=== PATIENT | female | born 1985 | race American Indian/Alaskan Native ===

== ENCOUNTER 2018-02-26 14:45 | Outpatient (CLI) | payer BC, MEDICAID ==
[2018-02-26 15:26] LABS: Bilirubin,Urine NEG (Negative); Blood,Urine NEG (Negative); Color,Urine Straw (Yellow); Protein,Urine <15 mg/dL mg/dL (Negative)
[2018-02-26] MEDS ORDERED: LACTATED RINGERS 500 ML IV ONE ×2 (15:47→17:15)
[2018-02-26] MEDS ORDERED: LACTATED RINGERS 1,000 ML IV SCH (17:00)
[2018-02-26] MEDS: BRETHINE SUB-Q SCH ×3 (17:42→18:36)
[2018-02-26] MEDS ORDERED: ROCEPHIN/NS 1 GM/50 ML 1 GM/50 ML BAG IV SCH (17:45)
[2018-02-26 19:48] VITALS: BP 117/59
== END 2018-02-26 21:10 | disposition home or self-care (01) ==
LOC: TRG 14:45
PROVIDERS: ATTEND Obstetrics & Gynecology
DX: O47.03 False labor before 37 completed weeks of gestation, third trimester (principal); Z3A.29 29 weeks gestation of pregnancy
CPT/HCPCS: 36415; 59025; 81001; 82731; 96360; 96372; J0696; J3105; J7120

== ENCOUNTER 2018-06-18 07:35 | Day surgery (SDC) | payer MEDICAID ==
[2018-06-17 11:04] LABS: Basophils % (Auto) 0.6 % (0.0-1.8); Eosinophils % (Auto) 0.7 % (0.0-4.3); Hematocrit 37.6 % (30.3-42.9); Hemoglobin 12.6 gm/dl (10.1-14.3); Lymphocytes # (Auto) 1.4 K/mm3 (1.2-5.4); Lymphocytes % (Auto) 19.6 % (13.4-35.0); Mean Corpuscular HGB Conc 34 % (30-34); Mean Corpuscular Volume 97 fl (79-97); Monocytes # (Auto) 0.5 K/mm3 (0.0-0.8); Monocytes % (Auto) 7.4 % (0.0-7.3); Platelet Count 366 K/mm3 (140-440); Red Blood Count 3.87 M/mm3 (3.65-5.03)
[2018-06-17 11:25] LABS: Alanine Aminotransferase 17 units/L (7-56); Albumin 3.8 g/dL (3.9-5); BUN/Creatinine Ratio 12; Blood Urea Nitrogen 7 mg/dL (7-17); Calcium 8.8 mg/dL (8.4-10.2); Hemolysis Index 35
--- NOTE | 2018-06-17 14:13 | Short Stay Summary ---
Short Stay Documentation Date of service: 06/18/18 Narrative H&P: 32y/o with undesired fertility. The patient elects for permanent sterilization. Patient has been reassessed/reevaluated/re-examined. H&P has been reviewed. No interval changes. - History Principal diagnosis: Unwanted fertility Past Medical History: seizures, other (Lupus) Past Surgical History: Other (renal biopsy) Social history: single - Allergies and Medications Current Medications: Allergies No Known Allergies Allergy (Verified 06/13/18 09:14) Home Medications Medication Instructions Recorded Confirmed Last Taken Type Keppra 500 mg PO BID 03/27/18 06/13/18 04/01/18 07:30 History Plaquenil 300 mg PO DAILY 03/27/18 06/13/18 04/01/18 07:30 History Prednisone 5 mg PO DAILY 03/27/18 06/13/18 04/01/18 07:30 History azaTHIOprine [Imuran] 50 mg PO BID 03/27/18 06/13/18 04/01/18 07:30 History Aspirin BABY CHEW TAB 81 mg PO DAILY 03/28/18 06/13/18 04/01/18 07:30 History Spironolactone 25 mg PO DAILY 06/13/18 06/13/18 Unknown History - Physical exam General appearance: no acute distress Integumentary: no rash HEENT: Atraumatic Lungs: Clear to auscultation Breasts: deferred Heart: Regular rate Gastrointestinal: normal Female Genitourinary: deferred Rectal Exam: deferred - Brief post op/procedure progress note Date of procedure: 06/18/18 Pre-op diagnosis: undesired fertility Post-op diagnosis: other (left hemorrhagic cyst) Procedure: Laparoscopic bilateral tubal ligation Left ovarian cystotomy Anesthesia: CORYA Surgeon: DILLON WATTERS Estimated blood loss: minimal Pathology: none Condition: stable - Hospital course Hospital course: The patient was admitted the day of surgery and underwent a laparoscopic bilateral tubal ligation. Please see operative note for details of surgery. Postoperative course was uneventful. - Disposition Condition at discharge: Good Disposition: DC-01 TO HOME OR SELFCARE Short Stay Discharge Plan Activity: other (pelvic rest for 1 week) Diet: regular Additional Instructions: Follow-up is not required Follow-up as needed Prescriptions: Ibuprofen [Motrin] 800 mg PO Q8HR PRN #60 tablet PRN Reason: Pain, Mild (1-3) oxyCODONE /ACETAMINOPHEN [Percocet 5/325] 1 tab PO Q6HR PRN #20 tablet PRN Reason: Pain
[2018-06-18] MEDS ORDERED: NACL BACTERIOSTATIC INFILTRATI ONE (08:51)
[2018-06-18] MEDS ORDERED: LACTATED RINGERS 1,000 ML IV SCH (09:00)
[2018-06-18] MEDS ORDERED: VERSED ONE (09:14)
[2018-06-18] MEDS ORDERED: MARCAINE 0.5% INFILTRATI ONE ×3 (09:57→11:02)
[2018-06-18] MEDS ORDERED: ZOFRAN ONE (09:58)
[2018-06-18] MEDS ORDERED: DECADRON ONE (09:58)
[2018-06-18] MEDS ORDERED: DIPRIVAN 10 MG/ML IV ONE (09:58)
[2018-06-18] MEDS ORDERED: SUBLIMAZE ONE (09:58)
[2018-06-18] MEDS ORDERED: XYLOCAINE MPF 2% ONE (10:03)
[2018-06-18] MEDS ORDERED: NACL 0.9% IR ONE (11:02)
--- NOTE | 2018-06-18 11:16 | Operative Report ---
Operative Report Operative Report: Date of surgery: 06/18/2018 Preoperative diagnosis: Unwanted fertility Postoperative diagnosis: Same as above; left hemorrhagic ovarian cyst Procedure: Laparoscopic bilateral tubal ligation with Filshie clips; left hemorrhagic cyst aspiration Surgeon: Arianna Cavanaugh M.D. Anesthesia: General endotracheal anesthesia Estimated blood loss: Minimal Findings: Left hemorrhagic cyst Indication: 32-year-old 013 with a history of undesired fertility. The patient elected for permanent sterilization. Procedure: The patient was taken to the operating room and given general endotracheal anesthesia without complication. The patient is prepped and draped in a normal sterile fashion. A bivalve speculum was placed in the patient's vagina and a single-tooth tenaculum was placed on the anterior lip of the cervix .A uterine acorn manipulato rwas placed, and the bivalve speculum was then removed. Attention was then turned to the patient's abdomen where a 5 mm infraumbilical skin incision was then made. A Veress needle was placed and peritoneal entry was verified water-filled syringe. Insufflation of the peritoneal cavity was performed with CO2 gas. A 5 mm trocar was placed and the laparoscope was then inserted. The patient was then placed in Trendelenburg. A 7 mm suprapubic skin incision was then made. Under direct visualization a 7 mm trocar was then placed. General survey of the patient's abdomen revealed left hemorrhagic cyst. A needle and syringe were placed through the trocar. The hemorrhagic cyst was aspirated with findings of blood-tinged fluid. The fallopian tube was then followed out to the fimbriated end. A Filshie clip was placed, on the ampullary portion of the tube. This was performed on the contralateral side as well. The 7 mm trocar was then removed. The pneumoperitoneum was then released. The 5 mm trocar laparoscope was then removed. The skin incisions were then closed with 4-0 Monocryl. The incisions were injected with quarter percent Marcaine. Dressings were applied to the incision. The vaginal instruments were then removed atraumatically. Then successfully extubated and taken to the recovery room. All sponge laps and needle counts were correct 2.
[2018-06-18] MEDS ORDERED: TORADOL ONE (11:20)
[2018-06-18] MEDS ORDERED: DILAUDID IV PRN (11:36)
[2018-06-18] MEDS ORDERED: DEMEROL ONE (11:48)
[2018-06-18] MEDS ORDERED: DEMEROL IV PRN (11:50)
[2018-06-18] MEDS ORDERED: PERCOCET 5/325 PO ONE (12:19)
[2018-06-18 12:41] VITALS: BP 141/80
--- NOTE | 2018-06-18 17:29 | Anesthesia Consultation ---
Anesthesia Consult and Med Hx Date of service: 06/18/18 - Airway Anesthetic Teeth Evaluation: Poor ROM Head & Neck: Adequate Mental/Hyoid Distance: Adequate Mallampati Class: Class II Intubation Access Assessment: Probably Good - Pulmonary Exam CTA: Yes - Cardiac Exam Cardiac Exam: RRR - Pre-Operative Health Status ASA Pre-Surgery Classification: ASA2 Proposed Anesthetic Plan: General - Pulmonary Hx Asthma: No COPD: No Hx Pneumonia: No - Cardiovascular System Hx Hypertension: Yes (CHTN-no meds) - Central Nervous System Hx Seizures: Yes (x1 only 2016, R/T Lupus) Hx Psychiatric Problems: No - Endocrine Hx Renal Disease: No Hx End Stage Renal Disease: No Hx Hypothyroidism: No Hx Hyperthyroidism: No - Hematic Hx Anemia: Yes Hx Sickle Cell Disease: No - Other Systems Hx Alcohol Use: Yes (Occas) Hx Cancer: No
--- NOTE | 2018-06-18 17:29 | Anesthesia Day of Surgery ---
Anesthesia Day of Surgery - Day of Surgery Patient Examined: Yes Patient H&P Reviewed: Yes Patient is NPO: Yes
--- NOTE | 2018-06-18 17:30 | Post Anesthesia Evaluation ---
- Post Anesthesia Evaluation Patient Participated: Yes Airway Patent: Yes Stable Respiratory Function: Yes Nausea/Vomiting: No Temp > 96.8F: Yes Pain Manageable: Yes Adequeate Hydration: Yes Anesthesia Complications: No
== END 2018-06-18 07:36 | disposition home or self-care (01) ==
LOC: OR 07:35
PROVIDERS: ATTEND Obstetrics & Gynecology
DX: Z30.2 Encounter for sterilization (principal); G43.909 Migraine, unspecified, not intractable, without status migrainosus; Z83.3 Family history of diabetes mellitus; Z79.899 Other long term (current) drug therapy; Z79.82 Long term (current) use of aspirin; Z72.89 Other problems related to lifestyle; Z98.890 Other specified postprocedural states; Z82.49 Family history of ischemic heart disease and other diseases of the circulatory system; Z86.2 Personal history of diseases of the blood and blood-forming organs and certain disorders involving the immune mechanism
CPT/HCPCS: 36415; 58671; 80053; 84703; 85025; J1100; J1170; J1885; J2175; J2250; J2405; J2704; J3010; J7120

== ENCOUNTER 2021-10-14 18:51 | Inpatient (IN) | payer MEDICARE ==
[2021-10-14] MEDS ORDERED: BICITRA ORAL LIQD 30ML PO ONE (19:29)
[2021-10-14] MEDS ORDERED: FAMOTIDINE 20 MG/2 ML INJ IV ONE (19:29)
[2021-10-14] MEDS ORDERED: METOCLOPRAMIDE 10 MG/2 ML INJ IV ONE (19:29)
[2021-10-14] MEDS ORDERED: LACTATED RINGERS 1,000 ML ONE ×2 (19:29→20:51)
[2021-10-14] MEDS ORDERED: miSOPROStol 200 MCG TAB PR PRN (19:30)
[2021-10-14] MEDS ORDERED: PROMETHAZINE 25 MG TAB PO PRN (19:30)
[2021-10-14] MEDS ORDERED: LACTATED RINGERS 1,000 ML IV SCH ×2 (19:30)
[2021-10-14] MEDS ORDERED: ePHEDrine SULFATE 50 MG/1 ML INJ IV PRN (19:30)
[2021-10-14] MEDS ORDERED: ACETAMINOPHEN 325 MG TAB PO PRN (19:30)
[2021-10-14] MEDS ORDERED: NalbUPHINE 10 MG/1 ML INJ IV PRN ×2 (19:30→20:00)
[2021-10-14] MEDS ORDERED: LIDOCAINE (2%) 20 MG/1 ML VIAL 20 ML MDV INFILTRATI ONE (19:30)
[2021-10-14] MEDS ORDERED: METHYLERGONOVINE MALEATE 0.2 MG/ML VIAL IM PRN (19:30)
[2021-10-14] MEDS ORDERED: BUTORPHANOL 2 MG/1 ML INJ IV PRN (19:30)
[2021-10-14] MEDS ORDERED: TERBUTALINE 1 MG/1 ML INJ SUB-Q PRN (19:30)
[2021-10-14] MEDS ORDERED: MINERAL OIL 30 ML ORAL LIQD PO PRN (19:30)
[2021-10-14] MEDS ORDERED: NALOXONE 0.4 MG/1 ML INJ IV PRN ×2 (19:30→20:00)
[2021-10-14] MEDS ORDERED: LOPERAMIDE 2 MG CAP PO PRN (19:30)
[2021-10-14] MEDS ORDERED: CARBOPROST TROMETHAMINE 250 MCG/1 ML INJ IM PRN (19:30)
[2021-10-14] MEDS ORDERED: OXYTOCIN 10 UNIT/1 ML INJ IM PRN (19:30)
[2021-10-14] MEDS ORDERED: ONDANSETRON 4 MG/2 ML INJ IV PRN (19:30)
[2021-10-14] MEDS ORDERED: PROMETHAZINE 25 MG RECT SUPP PR PRN (20:00)
[2021-10-14] MEDS ORDERED: HYDROmorphone 1 MG/1 ML INJ IV PRN (20:00)
[2021-10-14] MEDS ORDERED: OXYTOCIN DRIP 30 UNITS/500 ML BAG IV SCH (20:00)
[2021-10-14] MEDS ORDERED: ceFAZolin/Water 2 GM/20 ML 2 GM/20 ML SYRINGE IV NR (20:00)
[2021-10-14] MEDS ORDERED: diphenhydrAMINE 50 MG/ML VIAL IV PRN (20:00)
--- NOTE | 2021-10-14 20:12 | Anesthesia Consultation ---
Anesthesia Consult and Med Hx Date of service: 10/14/21 - Airway Anesthetic Teeth Evaluation: Good ROM Head & Neck: Adequate Mental/Hyoid Distance: Adequate Mallampati Class: Class II Intubation Access Assessment: Probably Good - Pulmonary Exam CTA: Yes - Cardiac Exam Cardiac Exam: RRR - Pre-Operative Health Status ASA Pre-Surgery Classification: ASA2 Proposed Anesthetic Plan: General Nerve Block: TAP - Pulmonary Hx Smoking: No Hx Asthma: No COPD: No Hx Pneumonia: No Hx Sleep Apnea: No - Cardiovascular System Hx Hypertension: Yes (CHTN-no meds) Hx Heart Attack/AMI: No Hx Angina: No - Central Nervous System Hx Seizures: Yes (x1 only 2016, R/T Lupus) Hx Psychiatric Problems: No - Gastrointestinal Hx Gastroesophageal Reflux Disease: No - Endocrine Hx Renal Disease: No Hx End Stage Renal Disease: No Hx Liver Disease: No Hx Insulin Dependent Diabetes: No Hx Non-Insulin Dependent Diabetes: No Hx Hypothyroidism: No Hx Hyperthyroidism: No - Hematic Hx Anemia: Yes Hx Sickle Cell Disease: No - Other Systems Hx Alcohol Use: Yes (Occas) Hx Cancer: No - Additional Comments Anesthesia Medical History Comments: Lupus
--- NOTE | 2021-10-14 20:12 | Anesthesia Day of Surgery ---
Anesthesia Day of Surgery - Day of Surgery Patient Examined: Yes Patient H&P Reviewed: Yes Patient is NPO: No (ate @1700) Beta Blockers: No Cardiac Clearance: No Pulmonary Clearance: No Justo's Test: N/A
[2021-10-14] MEDS ORDERED: LIDOCAINE MPF (2%) 20 MG/1 ML VIAL 5 ML ONE (20:13)
[2021-10-14] MEDS ORDERED: propofoL 200 MG/20 ML VIAL IV ONE (20:14)
[2021-10-14] MEDS ORDERED: SUCCINYLCHOLINE CHLORIDE 200 MG/10 ML INJ MDV ONE (20:14)
--- NOTE | 2021-10-14 20:17 | Ultrasound Report ---
Limited OB ultrasound INDICATION: Position FINDINGS: Single live intrauterine in breech position. heart rate 1 41 bpm. IMPRESSION: Single live intrauterine in breech position Signer Name: Nico Domingo MD Signed: 10/14/2021 8:12 PM Workstation Name: [id number]
[2021-10-14] MEDS ORDERED: dexAMETHasone 20 MG/5 ML VIAL ONE (20:18)
[2021-10-14] MEDS ORDERED: ONDANSETRON 4 MG/2 ML INJ ONE (20:18)
[2021-10-14] MEDS ORDERED: KETOROLAC 30 MG/1 ML INJ ONE (20:18)
--- NOTE | 2021-10-14 20:21 | History and Physical Report ---
History of Present Illness Date of examination: 10/14/21 Date of admission: 10/14/21 19:31 Chief complaint: contractions, my mucus plug came out History of present illness: Pt is a 36 year old NALLELY 11/25/21 at 34w0d who presents with regular painful contraction since 3 am 10/14/21 and mucus mixed with blood when she wipes. Upon evaluation in triage, the patient was noted to be 5-6 cm dilated with a bulging bag in breech presentation. She has had care at [facility] since 10 wks complicated by advanced maternal age, chronic hypertension on no medication, lupus, seizure disorder, anemia, h/o tubal ligation in 2019, HSIL pap smear, genital herpes without lesion or prodrome, polyhydramnios, and GBS positive status. Pt reports that she ate 3 hours prior to presentation. Past History Past Medical History: hypertension, seizure, hematologic disorders (anemia ), other (lupus ) Past Surgical History: [employer]/uterine surgery (tubal ligation in 2019, colposcopy ), other (renal biopsy ) [employer] O[employer]ATOR History: abnormal PAP smear (HSIL pap smear ) Family/Genetic History: diabetes, hypertension Social history: no significant social history - Obstetrical History Expected Date of Delivery: 11/25/21 Actual Gestation: 34 Week(s) 1 Day(s) : 5 Para: 3 Hx # Term Pregnancies: 3 Number of Pregnancies: 0 Spontaneous Abortions: 1 Induced : 0 Number of Living Children: 3 Medications and Allergies Allergies Allergy/AdvReac Type Severity Reaction Status Date / Time No Known Allergies Allergy Verified 06/13/18 09:14 Home Medications Medication Instructions Recorded Confirmed Last Taken Type Keppra 500 mg PO BID 03/27/18 06/18/18 06/18/18 07:30 History Plaquenil 300 mg PO DAILY 03/27/18 06/13/18 06/17/18 History Prednisone 5 mg PO DAILY 03/27/18 06/13/18 06/17/18 History azaTHIOprine [Imuran] 50 mg PO BID 03/27/18 06/13/18 06/17/18 History Aspirin BABY CHEW TAB 81 mg PO DAILY 03/28/18 06/18/18 06/12/18 History Spironolactone 25 mg PO DAILY 06/13/18 06/13/18 06/17/18 History Ibuprofen [Motrin] 800 mg PO Q8HR PRN #60 tablet 06/18/18 Unknown Rx oxyCODONE /ACETAMINOPHEN [Percocet 1 tab PO Q6HR PRN #20 tablet 06/18/18 Unknown Rx 5/325] Active Meds: Active Medications Acetaminophen (Acetaminophen 325 Mg Tab) 650 mg PO Q4H PRN PRN Reason: Pain, Mild (1-3) Butorphanol Tartrate (Butorphanol 2 Mg/1 Ml Inj) 2 mg IV Q2H PRN PRN Reason: Pain , Severe (7-10) Carboprost Tromethamine (Carboprost Tromethamine 250 Mcg/1 Ml Inj) 250 mcg IM ONCE PRN PRN Reason: Uterine Bleeding Diphenhydramine HCl (Diphenhydramine 50 Mg/Ml Vial) 12.5 mg IV Q2H PRN PRN Reason: Itching Ephedrine Sulfate (Ephedrine Sulfate 50 Mg/1 Ml Inj) 10 mg IV Q2M PRN PRN Reason: Hypotension Hydromorphone HCl (Hydromorphone 1 Mg/1 Ml Inj) 0.5 mg IV Q4H PRN PRN Reason: breakthrough pain > 7/10 Lactated Ringer's (Lactated Ringers) 1,000 mls @ 2,250 mls/hr IV PREOP GORGE Stop: 10/15/21 19:57 Last Admin: 10/14/21 19:49 Dose: 2,250 mls/hr Oxytocin/Sodium Chloride (Pitocin/Ns 30 Unit/500ml) 30 units in 500 mls @ 0 mls/hr IV TITR GORGE; Protocol Cefazolin Sodium (Ancef/Sterile Water 2 Gm/20 Ml) 2 gm in 20 mls @ 80 mls/hr IV PREOP NR; Protocol Stop: 10/14/21 23:59 Lactated Ringer's (Lactated Ringers) 1,000 mls @ 125 mls/hr IV DIRECT GORGE Loperamide HCl (Loperamide 2 Mg Cap) 2 mg PO ONCE PRN PRN Reason: give with Hemabate Methylergonovine Maleate (Methylergonovine Maleate 0.2 Mg/Ml Vial) 0.2 mg IM ONCE PRN PRN Reason: Uterine Bleeding Mineral Oil (Mineral Oil 30 Ml Oral Liqd) 30 ml PO QHS PRN PRN Reason: Constipation Misoprostol (Misoprostol 200 Mcg Tab) 800 mcg GA ONCE PRN PRN Reason: Uterine Bleeding Nalbuphine HCl (Nalbuphine 10 Mg/1 Ml Inj) 10 mg IV Q2H PRN PRN Reason: Pain, Moderate (4-6) Nalbuphine HCl (Nalbuphine 10 Mg/1 Ml Inj) 2.5 mg IV Q2H PRN PRN Reason: Itching Naloxone HCl (Naloxone 0.4 Mg/1 Ml Inj) 0.2 mg IV Q2MIN PRN PRN Reason: Res Rate </= 8 or 02 SAT < 92% Ondansetron HCl (Ondansetron 4 Mg/2 Ml Inj) 4 mg IV Q8H PRN PRN Reason: Nausea And Vomiting Oxytocin (Oxytocin 10 Unit/1 Ml Inj) 10 unit IM ONCE PRN PRN Reason: Uterine Bleeding Promethazine HCl (Promethazine 25 Mg Tab) 25 mg PO Q6H PRN PRN Reason: Nausea And Vomiting Promethazine HCl (Promethazine 25 Mg Rect Supp) 25 mg GA Q6H PRN PRN Reason: Nausea And Vomiting Terbutaline Sulfate (Terbutaline 1 Mg/1 Ml Inj) 0.25 mg SUB-Q ONCE PRN PRN Reason: Hyperstimulation/Hypertonicity Review of Systems All systems: negative - Vital Signs Vital signs: Vital Signs Pulse Pulse Ox 86 100 10/14/21 19:19 10/14/21 19:19 Temp Pulse Resp BP Pulse Ox 99.1 F 83 18 133/79 100 10/14/21 19:47 10/14/21 19:59 10/14/21 19:47 10/14/21 19:20 10/14/21 19:59 - Physical Exam Breasts: Positive: deferred Abdomen: Positive: soft (gravid ) Uterus: Positive: enlarged (gravid ) Extremities: Positive: normal - Obstetrical FHR: auscultation normal Uterine Contraction Monitor Mode: External Cervical Dilatation: 6 Cervical Effacement Percentage: 80 (feet palpable ) station: -3 Uterine Contraction Pattern: Regular Uterine Tone Measurement Phase: Resting Uterine Contraction Intensity: Strong/Firm Results Result Diagrams: 10/14/21 Unknown All other labs normal. Assessment and Plan A: IUP at 34w0d labor Malpresentation Advanced maternal age Chronic hypertension on no medication Lupus Seizure disorder Anemia h/o tubal ligation in 2019 with subsequent , pt desires bilateral salpingectomy HSIL pap smear Genital herpes without lesion or prodrome Polyhydramnios GBS positive status P: Proceed with primary section, bilateral salpingectomy and other indicated procedures
[2021-10-14] MEDS ORDERED: BUPIVACAINE/PF (0.25%) 2.5 MG/ML 30 ML VIAL INFILTRATI ONE (20:37)
[2021-10-14] MEDS ORDERED: HYDROmorphone 1 MG/1 ML INJ ONE (20:37)
[2021-10-14] MEDS ORDERED: WATER FOR IRRIG STERILE 1,500 ML BOTTLE IR ONE (20:43)
[2021-10-14] MEDS ORDERED: SODIUM CHLORIDE 0.9% IRR 1,500 ML BOTTLE IR ONE (20:43)
[2021-10-14] MEDS ORDERED: miSOPROStol 200 MCG TAB ONE (21:21)
[2021-10-14 21:41] LABS: Basophils # (Auto) 0.1 K/mm3 (0.0-0.1); Basophils % (Auto) 0.4 % (0.0-1.8); Eosinophils % (Auto) 0.1 % (0.0-4.3); Hematocrit 31.4 % (30.3-42.9); Hemoglobin 10.4 gm/dl (10.1-14.3); Lymphocytes % (Auto) 7.1 % (13.4-35.0); Mean Corpuscular HGB Conc 33 % (30-34); Mean Corpuscular Volume 97 fl (79-97); Monocytes # (Auto) 0.8 K/mm3 (0.0-0.8); Monocytes % (Auto) 5.6 % (0.0-7.3); Platelet Count 218 K/mm3 (140-440); Red Blood Count 3.25 M/mm3 (3.65-5.03); Red Cell Distribution Width 15.4 % (13.2-15.2)
--- NOTE | 2021-10-14 23:05 | Procedure Note ---
OB Delivery Note - Delivery Date of Delivery: 10/14/21 Surgeon: MATHEUS HART Estimated blood loss: other (2030 mL) - Section Preop diagnosis: breech, other ( labor ) Postop diagnosis: same section procedure: section, primary low transverse Disposition: PACU Complications: intra-op hemorrhage, uterine atony Narrative: Please see operative report - A at 1 minute: 1 at 5 minutes: 6 Gender: Male (Apgard 1,6,7; wt 2260g (5lb 0oz) @ 2056 pm)
--- NOTE | 2021-10-14 23:06 | Operative Report ---
Operative Report Operative Report: Date of procedure: October 14, 2021 Preoperative diagnosis: 1) IUP at 34w1d 2) Labor 3) Malpresentation 4) A MA 5) Lupus 6) Chronic HTN Postoperative diagnosis: Same 7) Uterine atony 8) Intraoperative Hemorrhage Procedure: Primary low transverse section Surgeon: Natalya Silva M.D. Anesthesia: GETA Findings: 1) Viable male , Apgars 1, 6 and 7, weight 2260 g, (5lb 0oz) in double footling breech presentation. Terminal Meconium. 2) Evidence of prior tubal ligation 3) Normal appearing uterus and ovaries Estimated blood loss: 2037 mL IV fluids: 1500 mL crystalloid, 1 unit PRBCs started in OR Urine output: 150 mL, clear at the end of the procedure Medication: Misoprostol 800 mcg sublingual; Methergine 0.2 mg IM Drains: Abebe to gravity Specimens: None Complications: None. Counts correct x 3 Disposition: Stable to PACU Indication for procedure: Pt is a 36 year old at 34w0d who presents in labor with advanced cervical dilation and malpresentation. The decision was made to proceed with section. Operation in detail: After the risks, benefits, alternatives and complications were explained to the patient she gave informed consent for the procedure. She was subsequently taken to the operating room where regional anesthesia was noted to be adequate. She was subsequently placed in the dorsal supine position with leftward tilt and prepped and draped in a normal sterile fashion. heart tones were noted prior to incision. A timeout was performed. A Pfannenstiel skin incision was made with the knife and carried down to the layer of the fascia with the Bovie. The fascia was incised in the midline and the fascial incision was extended bilaterally with the Bovie. The fascial incision was then stretched. The rectus muscles were then in the midline. The peritoneum was then entered bluntly. The peritoneal incision was extended with good visualization of the bladder. The peritoneal incision was then stretched. An Noble retractor was placed. The bladder blade was then placed. A transverse incision was made in the lower uterine segment with a knife and extended bilaterally with the bandage scissors. Amniotomy was performed with egress of clear fluid. The feet, legs and buttocks were delivered, and covered with a moist towel. Next the torso, arms and finally head were delivered with some difficulty. bulb suctioned at delivery. Cord clamped and cut. handed to NICU staff in attendance. The placenta was then delivered manually. The uterus was then exteriorized and cleared of all clots and debris. The hysterotomy was then reapproximated with 0 Monocryl in a running locked fashion. A second layer of the same suture was used in imbricating fashion. Multiple figure of eights of 0 Monocryl and 2-0 Vicryl were used to achieve hemostasis. The hysterotomy was inspected and hemostasis was noted. The uterus was placed back into the peritoneal cavity and the gutters were irrigated and cleared of all clots and debris. The hysterotomy was again inspected and noted to be hemostatic. Surgicel was placed over the hysterotomy. The Noble retractor was removed. The peritoneum was reapproximated with 2-0 Vicryl in a running fashion incorporating the rectus muscles. Surgicel was placed over the rectus muscles. The fascia was reapproximated with 0 Vicryl in a running fashion. The skin was reapproximated with bill. The incision was then covered with a pressure dressing. The procedure was then ended. The patient tolerated the procedure well and was taken to the PACU in stable condition. All instrument, lap, and needle counts were correct 3.
[2021-10-15] MEDS ORDERED: ACETAMINOPHEN 325 MG TAB PO PRN (00:35)
[2021-10-15] MEDS ORDERED: SIMETHICONE 80 MG CHEW TAB PO PRN (00:35)
[2021-10-15] MEDS ORDERED: HYDROmorphone 1 MG/1 ML INJ IV PRN (00:35)
[2021-10-15] MEDS ORDERED: LANOLIN/ZINC/DIMETHICONE (LANSINOH) 7 GM TP PRN (00:35)
[2021-10-15] MEDS ORDERED: NALOXONE 0.4 MG/1 ML INJ IV PRN (00:35)
[2021-10-15] MEDS ORDERED: WITCH HAZEL/ GLYCERIN PAD TP PRN (00:35)
[2021-10-15] MEDS ORDERED: OXYTOCIN DRIP 30 UNITS/500 ML BAG IV SCH (01:00)
[2021-10-15] MEDS ORDERED: D5W/LACTATED RINGERS 1,000 ML IV SCH (01:00)
[2021-10-15] MEDS: ceFAZolin/NS 1 GM/50 ML 1 GM/50 ML BAG IV SCH ×2 (03:51→12:03)
[2021-10-15] MEDS: HYDROmorphone 1 MG/1 ML INJ IV PRN ×4 (03:56→18:45)
[2021-10-15 05:19] LABS: Hematocrit 32.8 % (30.3-42.9); Hemoglobin 10.6 gm/dl (10.1-14.3); Mean Corpuscular HGB Conc 32 % (30-34); Mean Corpuscular Volume 93 fl (79-97); Platelet Count 213 K/mm3 (140-440); Red Blood Count 3.51 M/mm3 (3.65-5.03); Red Cell Distribution Width 16.6 % (13.2-15.2)
[2021-10-15 05:23] LABS: INR 1.09 (0.87-1.13)
[2021-10-15 05:24] LABS: Partial Thromboplastin Time 32.5 Sec. (24.2-36.6)
[2021-10-15] MEDS: oxyCODONE /ACETAMINOPHEN 5-325MG TAB PO PRN ×2 (08:24→21:58)
--- NOTE | 2021-10-15 09:30 | Progress Note ---
Assessment and Plan A: POD#1 s/p primary at 34 wks secondary to labor, malpresentation Acute blood loss anemia s/p 1 unit PRBCs intraop Advanced maternal age Chronic hypertension on no medication Lupus on Plaquenil and Prednisone Seizure disorder- no meds since March 2021 Anemia h/o tubal ligation in 2019 with subsequent ; salpingectomy not performed due to intraop bleeding HSIL pap smear Genital herpes without lesion or prodrome P: Routine postoperative advances Maintain good pain control Avoid NSAIDs at this time Subjective - Subjective Date of service: 10/15/21 Principal diagnosis: s/p primary at 34 wks, intraop hemorrhage Interval history: Pt reports abdominal pain somewhat relieved by pain medication. Decreasing lochia. Mancuso and SCDs still in place. Patient reports: appetite normal, pain poorly controlled, no voiding normally (mancuso in place ), no flatus, no bowel movement, no ambulating normally (SCDs in place ) : in NICU Objective - Vital Signs Latest vital signs: Vital Signs Temp Pulse Resp BP BP Pulse Ox Pulse Ox 10/15/21 08:57 97.3 F L 65 19 123/58 99 10/15/21 08:37 99 10/15/21 04:32 98.1 F 90 18 102/65 93 10/15/21 04:28 98.5 F 68 18 146/85 99 10/15/21 04:25 98 10/15/21 03:56 18 99 10/15/21 00:50 98 10/15/21 00:34 99.6 F 83 20 141/62 100 10/15/21 00:28 22 10/15/21 00:20 98 10/15/21 00:11 99.8 F H 83 20 132/58 100 10/14/21 23:20 77 18 142/82 100 10/14/21 23:05 84 18 140/72 100 10/14/21 22:50 91 H 16 127/85 100 10/14/21 22:35 87 16 103/48 100 10/14/21 22:30 79 18 129/54 100 10/14/21 22:28 97.8 F 75 16 124/49 100 10/14/21 19:59 83 100 10/14/21 19:54 86 99 10/14/21 19:50 93 H 90 10/14/21 19:49 73 100 10/14/21 19:47 99.1 F 18 10/14/21 19:44 94 H 100 10/14/21 19:40 87 89 10/14/21 19:39 87 99 10/14/21 19:34 87 100 10/14/21 19:29 83 100 10/14/21 19:24 90 100 10/14/21 19:20 86 133/79 10/14/21 19:19 86 100 Intake and Output 10/14/21 10/15/21 10/15/21 22:59 06:59 14:59 Intake Total 1600 100 Output Total 150 900 300 Balance 1450 -800 -300 Intake: IV 1500 Blood Product 100 100 Output: Urine 150 900 300 Indwelling Catheter 100 Uretheral (Mancuso) 750 Void 200 Other: Total, Output Amount 200 # Voids Void 1 Weight 67.585 kg Estimated Blood Loss 2,037 - Exam Breasts: Present: deferred Abdomen: Present: soft, distention (mild ) Uterus: Present: fundal height at umbilicus Extremities: Present: normal Incision: Present: dressed - Labs Labs: Abnormal lab results 10/14/21 10/14/21 10/15/21 Range/Units Unknown Unknown 04:29 WBC 13.7 H 19.7 H (4.5-11.0) K/mm3 RBC 3.25 L 3.51 L (3.65-5.03) M/mm3 RDW 15.4 H 16.6 H (13.2-15.2) % Lymph % (Auto) 7.1 L (13.4-35.0) % Lymph # (Auto) 1.0 L (1.2-5.4) K/mm3 Seg Neutrophils % 86.8 H (40.0-70.0) % Seg Neutrophils # 11.9 H (1.8-7.7) K/mm3 PT (12.2-14.9) Sec. Fibrinogen (211-480) mg/dl Crossmatch See Detail 10/15/21 Range/Units 04:29 WBC (4.5-11.0) K/mm3 RBC (3.65-5.03) M/mm3 RDW (13.2-15.2) % Lymph % (Auto) (13.4-35.0) % Lymph # (Auto) (1.2-5.4) K/mm3 Seg Neutrophils % (40.0-70.0) % Seg Neutrophils # (1.8-7.7) K/mm3 PT 15.4 H (12.2-14.9) Sec. Fibrinogen 571 H (211-480) mg/dl Crossmatch
[2021-10-15] MEDS: HYDROXYCHLOROQUINE 200 MG TAB PO SCH (10:36)
[2021-10-15] MEDS: predniSONE 5 MG TAB PO SCH (10:36)
--- NOTE | 2021-10-15 11:58 | Post Anesthesia Evaluation ---
- Post Anesthesia Evaluation Patient Participated: Yes Airway Patent: Yes Stable Respiratory Function: Yes Nausea/Vomiting: No Temp > 96.8F: Yes Pain Manageable: Yes Adequeate Hydration: Yes Anesthesia Complications: No Block Receding Appropriately: Yes Patient on Ventilator: No
[2021-10-15 15:14] LABS: Hematocrit 29.5 % (30.3-42.9); Hemoglobin 9.7 gm/dl (10.1-14.3)
[2021-10-15] MEDS: LACTULOSE 20 GM/30 ML ORAL LIQD PO SCH (18:44)
[2021-10-16] MEDS: IBUPROFEN 800 MG TAB PO PRN
[2021-10-16] MEDS ORDERED: MEASLES, MUMPS & RUBELLA 12,500 UNIT/0.5 ML VACCINE SUB-Q ONE (00:31)
[2021-10-16] MEDS: oxyCODONE /ACETAMINOPHEN 5-325MG TAB PO PRN ×4 (02:13→18:46)
[2021-10-16] MEDS ORDERED: TETANUS,DIPH,PERTUSS(ACELL) VACCINE 0.5 ML SYRINGE IM ONE (06:00)
--- NOTE | 2021-10-16 08:01 | Progress Note ---
Assessment and Plan - Patient Problems (1) Status post primary low transverse section Current Visit: Yes Status: Acute Plan to address problem: Routine postoperative care Subjective - Subjective Date of service: 10/16/21 Principal diagnosis: s/p primary at 34 wks, intraop hemorrhage Interval history: The patient is voiding spontaneously. She is tolerating her clears and has been advanced to regular diet. Patient reports: appetite normal, voiding normally, pain well controlled : in NICU Objective - Vital Signs Latest vital signs: Vital Signs Temp Pulse Resp BP Pulse Ox Pulse Ox 10/16/21 06:46 16 10/16/21 02:13 18 10/16/21 00:00 16 10/15/21 23:36 98.2 F 79 18 124/62 100 10/15/21 22:58 18 10/15/21 21:58 18 10/15/21 20:08 98 10/15/21 19:15 18 10/15/21 15:29 98.1 F 76 18 129/75 99 10/15/21 12:12 98.1 F 67 18 127/72 99 10/15/21 08:57 97.3 F L 65 19 123/58 99 10/15/21 08:37 99 Intake and Output 10/15/21 10/16/21 10/16/21 22:59 06:59 14:59 Intake Total 480 120 Balance 480 120 Intake: Intake, Free Water 480 120 Other: # Voids Indwelling Catheter 2 Void 1 - Exam Incision: Present: dressed - Labs Labs: Abnormal lab results 10/14/21 10/15/21 Range/Units Unknown 14:27 Hgb 9.7 L (10.1-14.3) gm/dl Hct 29.5 L (30.3-42.9) % Crossmatch See Detail
[2021-10-16] MEDS: HYDROXYCHLOROQUINE 200 MG TAB PO SCH (10:21)
[2021-10-16] MEDS: predniSONE 5 MG TAB PO SCH (10:51)
[2021-10-16] MEDS ORDERED: HYDROXYCHLOROQUINE 200 MG TAB PO SCH ×2 (11:00)
[2021-10-16] MEDS: ONDANSETRON 4 MG/2 ML INJ IV PRN (12:05)
[2021-10-16] MEDS: LACTULOSE 20 GM/30 ML ORAL LIQD PO SCH (18:46)
[2021-10-16] MEDS: HYDROmorphone 1 MG/1 ML INJ IV PRN (23:22)
[2021-10-17] MEDS: LACTULOSE 20 GM/30 ML ORAL LIQD PO SCH (06:29)
[2021-10-17] MEDS: IBUPROFEN 800 MG TAB PO PRN (06:47)
[2021-10-17] MEDS: ONDANSETRON 4 MG/2 ML INJ IV PRN (06:47)
--- NOTE | 2021-10-17 08:37 | Discharge Summary ---
Providers - Providers Date of Admission: 10/14/21 19:31 Date of discharge: 10/17/21 Attending physician: MATHEUS HART Primary care physician: [facility] Hospitalization Reason for admission: labor Delivery: Procedure: primary low transverse Episiotomy: none Laceration: none Incision: dry, intact (bill intact, no drainage or bleeding noted) Other procedures: none complications: none Discharge diagnosis: delivery Cable baby: male Hospital course: Pt is a 36 year old NALLELY 11/25/21 at 34w0d who presented with regular painful contraction since 3 am 10/14/21 and mucus mixed with blood when she wipes. Upon evaluation in triage, the patient was noted to be 5-6 cm dilated with a bulging bag in breech presentation. She has had care at [facility] since 10 wks complicated by advanced maternal age, chronic hypertension on no medication, lupus, seizure disorder, anemia, h/o tubal ligation in 2019, HSIL pap smear, genital herpes without lesion or prodrome, polyhydramnios, and GBS positive status. Delivered viable male via primary C/S, infant currently in NICU. course has been uncomplicated. Discharge criteria met on POD#3. Condition at discharge: Stable Disposition: 01 HOME / SELF CARE / HOMELESS - Discharge Diagnoses (1) Status post primary low transverse section Status: Acute (2) Lupus Status: Acute Qualifiers: (3) Anemia Status: Acute Qualifiers: Anemia type: iron deficiency Comment: Asmptomatic Increase iron rich foods into diet Plan - Discharge Medications Prescriptions: Ibuprofen [Motrin] 800 mg PO Q8HR PRN #60 tablet PRN Reason: Pain , Severe (7-10) oxyCODONE /ACETAMINOPHEN [Percocet 5/325] 1 tab PO Q6HR PRN #30 tablet PRN Reason: Pain - Provider Discharge Summary Activity: routine, no sex for 6 weeks, no heavy lifting 4 weeks, no strenuous exercise Diet: other (Iron rich diet) Instructions: routine Additional instructions: [] Smoking cessation referral if applicable(refer to patient education folder for contact #) [] Refer to [facility] Booklet Call your doctor immediately for: * Fever > 100.5 * Heavy vaginal bleeding ( >1 pad per hour) * Severe persistent headache * Shortness of breath * Reddened, hot, painful area to leg or breast * Drainage or odor from incision. * Keep incision clean and dry at all times and follow doctor's instructions regarding bathing/showering * Follow up at office in 1 week for staple removal - Follow up plan Follow up: PRIMARY CARE, [Primary Care Provider] - 10/24/21
[2021-10-17] MEDS: predniSONE 5 MG TAB PO SCH (09:59)
[2021-10-17] MEDS ORDERED: HYDROXYCHLOROQUINE 200 MG TAB PO SCH ×2 (10:00)
[2021-10-17] MEDS: oxyCODONE /ACETAMINOPHEN 5-325MG TAB PO PRN (12:34)
[2021-10-17 14:26] VITALS: BP 125/79
[2021-10-18] MEDS ORDERED: HYDROXYCHLOROQUINE 200 MG TAB PO SCH (11:00)
[2021-10-19] MEDS ORDERED: HYDROXYCHLOROQUINE 200 MG TAB PO SCH (10:00)
[2021-10-20] MEDS ORDERED: HYDROXYCHLOROQUINE 200 MG TAB PO SCH (11:00)
[2021-10-21] MEDS ORDERED: HYDROXYCHLOROQUINE 200 MG TAB PO SCH (10:00)
[2021-10-22] MEDS ORDERED: HYDROXYCHLOROQUINE 200 MG TAB PO SCH (10:00)
== END 2021-10-17 14:45 | disposition home or self-care (01) | DRG 786 ==
LOC: LD 18:51 → TRG 18:51 → LD 19:31 → TRG 20:17 → OB 10-15 00:20
PROVIDERS: ADMIT Obstetrics & Gynecology; ATTEND Obstetrics & Gynecology
PROC: 10D00Z1 Extraction of Products of Conception, Low, Open Approach (ICD-10-PCS; principal; 2021-10-14)
PROC: 30233N1 Transfusion of Nonautologous Red Blood Cells into Peripheral Vein, Percutaneous Approach (ICD-10-PCS; 2021-10-14)
PROC: 3E0234Z Introduction of Serum, Toxoid and Vaccine into Muscle, Percutaneous Approach (ICD-10-PCS; 2021-10-16)
DX: O32.8XX0 Maternal care for other malpresentation of fetus, not applicable or unspecified (principal); O60.14X0 Preterm labor third trimester with preterm delivery third trimester, not applicable or unspecified; O72.1 Other immediate postpartum hemorrhage; O10.92 Unspecified pre-existing hypertension complicating childbirth; O99.354 Diseases of the nervous system complicating childbirth; O98.32 Other infections with a predominantly sexual mode of transmission complicating childbirth; D62 Acute posthemorrhagic anemia; Z3A.34 34 weeks gestation of pregnancy; Z37.0 Single live birth; Z20.822 Contact with and (suspected) exposure to COVID-19; Z23 Encounter for immunization; G40.909 Epilepsy, unspecified, not intractable, without status epilepticus; O99.824 Streptococcus B carrier state complicating childbirth; A60.00 Herpesviral infection of urogenital system, unspecified; O99.02 Anemia complicating childbirth; O40.3XX0 Polyhydramnios, third trimester, not applicable or unspecified; M32.9 Systemic lupus erythematosus, unspecified; Z83.3 Family history of diabetes mellitus; Z82.49 Family history of ischemic heart disease and other diseases of the circulatory system
CPT/HCPCS: 36415; 76815; 85014; 85018; 85025; 85027; 85384; 85610; 85730; 86850; 86900; 86901; 86920; G0378; J3490; J7060; J7121; J0330; J0690; J1100; J1170; J1885; J2405; J2704; J2765; J7120; J7512; P9016; U0003